=== PATIENT | female | born 1970 | race Hispanic/Latino ===

== ENCOUNTER → 2019-09-28 | Outpatient (CLI) | payer MEDICARE ==
--- NOTE | 2019-09-22 12:58 | NUR ---
PT WAS DISTRAUGHT OVER FAMILY AND ILLNESS, PROCEDURE DATE MOVED TO 09/28/19
[~2019-09-28] VITALS: Ht 154.9 cm; Wt 135.0 kg
[~2019-09-28] MED LIST: REGADENOSON 0.4 MG/5 ML PF SYG IVP ONE; REGADENOSON 0.4 MG/5 ML PF SYG IVP SCH
== END | disposition home or self-care (01) ==
LOC: SHCH 09-22 07:47
PROVIDERS: ATTEND Internal Medicine Cardiovascular Disease
DX: R94.31 Abnormal electrocardiogram [ECG] [EKG] (principal); I25.89 Other forms of chronic ischemic heart disease
CPT/HCPCS: 78452; 93017; 96374; A9500 ×2; J2785

== ENCOUNTER → 2019-10-29 | Outpatient (CLI) | payer MEDICARE | END | disposition home or self-care (01) | LOC: SHCH 12:45 | PROVIDERS: ATTEND Internal Medicine Cardiovascular Disease | DX: I51.7 Cardiomegaly (principal) | CPT/HCPCS: 93306 ==